=== PATIENT | female | born 1980 | race Two or more races ===

== ENCOUNTER 2018-11-20 10:56 | Outpatient (CLI) | payer OTHER | END 2018-11-20 12:30 | disposition home or self-care (01) | LOC: LAB 10:56 | DX: J11.1 Influenza due to unidentified influenza virus with other respiratory manifestations (principal); A49.3 Mycoplasma infection, unspecified site ==

== ENCOUNTER 2021-08-04 14:49 | Outpatient (CLI) | payer OTHER | END 2021-08-04 14:50 | disposition home or self-care (01) | LOC: LAB 14:49 | DX: Z03.818 Encounter for observation for suspected exposure to other biological agents ruled out (principal) ==